=== PATIENT | female | born 1960 | race Asian ===

== ENCOUNTER 2019-07-04 17:56 | Outpatient (CLI) | payer OTHER | END 2019-07-04 20:06 | disposition home or self-care (01) | LOC: LABW 17:56 | DX: J82 Pulmonary eosinophilia, not elsewhere classified (principal) | CPT/HCPCS: 36415; 82785; 86003 ==

== ENCOUNTER 2019-07-05 01:02 | Outpatient (CLI) | payer OTHER | END 2019-07-05 20:14 | disposition home or self-care (01) | LOC: LAB 01:02 | DX: Z79.01 Long term (current) use of anticoagulants (principal) | CPT/HCPCS: 85610 ==

== ENCOUNTER → 2019-08-08 | Outpatient (CLI) | payer OTHER | LOC: LAB 23:43 | DX: Z79.01 Long term (current) use of anticoagulants (principal) | CPT/HCPCS: 36415; 85610 ==

== ENCOUNTER → 2019-08-14 | Outpatient (CLI) | payer OTHER | LOC: LAB 20:11 | DX: Z79.01 Long term (current) use of anticoagulants (principal) | CPT/HCPCS: 85610 ==

== ENCOUNTER 2019-08-26 01:48 | Outpatient (CLI) | payer OTHER | END 2019-08-26 20:09 | disposition home or self-care (01) | LOC: LAB 01:48 | DX: Z79.01 Long term (current) use of anticoagulants (principal) | CPT/HCPCS: 36415; 85610 ==

== ENCOUNTER 2019-09-23 05:00 | Outpatient (CLI) | payer OTHER | END 2019-09-23 21:32 | disposition home or self-care (01) | LOC: LAB 05:00 | DX: Z79.01 Long term (current) use of anticoagulants (principal) | CPT/HCPCS: 36415; 85610 ==

== ENCOUNTER → 2019-10-01 | Outpatient (CLI) | payer OTHER | LOC: LAB 22:39 | DX: Z79.01 Long term (current) use of anticoagulants (principal) | CPT/HCPCS: 85610 ==